=== PATIENT | female | born 1990 | race African-American/Black ===

== ENCOUNTER 2017-10-15 20:38 | Emergency (ER) | payer OTHER ==
--- NOTE | 2017-10-15 23:04 | ED Physician Documentation ---
PD HPI URI - Stated complaint Stated Complaint: COUGH/HEADACHE/FEVER/CHEST CONGESTION - Chief complaint Chief Complaint: Resp - History obtained from History obtained from: Patient - History of Present Illness Timing - onset: How many weeks ago (1-2) Timing duration: Weeks Timing details: Gradual onset, Still present (had URI symptoms initially and now with productive cough and wheezing despite OTC meds.) Associated symptoms: Fever, Chills, Productive cough, Dyspnea. No: Sore throat , Swollen nodes, Hemoptysis, Chest pain, NVD Contributing factors: No: Sick contact, Travel, Immunocompromised, COPD / asthma Similar symptoms before: Has not had sx before Recently seen: Not recently seen Review of Systems Constitutional: reports: Fever, Chills, Myalgias, Fatigue Nose: reports: Rhinorrhea / runny nose, Congestion Throat: reports: Sore throat Cardiac: denies: Chest pain / pressure Respiratory: reports: Dyspnea, Cough GI: denies: Vomiting, Diarrhea Skin: denies: Rash, Lesions PD PAST MEDICAL HISTORY - Past Medical History Past Medical History: Yes Respiratory: None Psych: Depression - Past Surgical History 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 - Present Medications Home Medications: Ambulatory Orders Medication Instructions Recorded Confirmed Citalopram Hydrobromide [Celexa] 1 tab PO DAILY 05/31/17 05/31/17 Azithromycin [Zithromax] 250 mg PO DAILY #5 tablet 10/16/17 Benzonatate [Tessalon] 100 mg PO TID PRN #25 capsule 10/16/17 Dexamethasone [Decadron] 4 mg PO DAILY #5 tablet 10/16/17 guaiFENesin/CODEINE [Robitussin AC] 10 ml PO Q6H PRN #240 ml 10/16/17 - Allergies Allergies/Adverse Reactions: Allergies Allergy/AdvReac Type Severity Reaction Status Date / Time Penicillins Allergy Respiratory Verified 10/15/17 21:07 - Social History Does the pt smoke?: No Smoking Status: Never smoker Does the pt drink ETOH?: No Does the pt have substance abuse?: No - Immunizations Immunizations are current?: Yes - POLST Patient has POLST: No PD ED PE NORMAL - Vitals Vital signs reviewed: Yes - General General: Alert and oriented X 3, No acute distress, Well developed/nourished - HEENT HEENT: Ears normal, Moist mucous membranes, Pharynx benign - Neck Neck: Supple, no meningeal sign, No adenopathy - Cardiac Cardiac: RRR, No murmur - Respiratory Respiratory: Clear bilaterally - Abdomen Abdomen: Soft, Non tender - Female Female : Beef Specialist 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 - Back Back: No CVA TTP - Derm Derm: Normal color, Warm and dry, No rash Results - Vitals Vitals: Oxygen O2 Source Room air PD MEDICAL DECISION MAKING - ED course Complexity details: considered differential (seems like URI symptoms with now additional symptoms of purulent cough ), d/w patient Departure - Departure Disposition: Home, Self Care Clinical Impression: Bronchitis Condition: Stable Record reviewed to determine appropriate education?: Yes Instructions: ED Upper Resp Infec Abx Tx Prescriptions: Azithromycin [Zithromax] 250 mg PO DAILY #5 tablet Benzonatate [Tessalon] 100 mg PO TID PRN #25 capsule PRN Reason: Cough Dexamethasone [Decadron] 4 mg PO DAILY #5 tablet guaiFENesin/CODEINE [Robitussin AC] 10 ml PO Q6H PRN #240 ml PRN Reason: Cough Comments: Use your albuterol inhaler 2 puffs 4 times a day for the next 5-7 days. Use Tessalon if needed for cough and add Robitussin with codeine if needed. Decadron daily for 5 more days to reduce bronchial inflammation and reduce the cough. This sounds like there may be some bacterial component so use Zithromax daily for 5 more days as well. Recheck if not improving over the next several days. Drink lots of fluids. Discharge Date/Time: 10/16/17 00:18
[2017-10-15] MEDS ORDERED: BENZONATATE 100 MG CAPSULE PO STA (23:22)
[2017-10-15] MEDS ORDERED: DEXAMETHASONE 10 MG/ML VIAL PO STA (23:22)
[2017-10-15] MEDS ORDERED: AZITHROMYCIN 250 MG TABLET PO STA (23:23)
[2017-10-16 00:18] VITALS: BP 121/62
== END 2017-10-16 00:18 | disposition home or self-care (01) ==
LOC: ED 20:38
DX: J40 Bronchitis, not specified as acute or chronic (principal)
CPT/HCPCS: 99283; A9270

== ENCOUNTER 2019-05-05 19:38 | Emergency (ER) | payer OTHER ==
[2019-05-05 20:43] LABS: BILIRUBIN,URINE NEGATIVE (NEGATIVE); GLUCOSE, URINE (UA) NEGATIVE (NEGATIVE); KETONES,URINE (UA) NEGATIVE (NEGATIVE); LEUKOCYTE ESTERASE, URINE NEGATIVE (NEGATIVE); NITRITE,URINE NEGATIVE (NEGATIVE); OCCULT BLOOD,URINE TRACE-LYSE (NEGATIVE); PROTEIN,URINE NEGATIVE (NEGATIVE); UROBILINOGEN,URINE 0.2 (NORMAL) E.U./dL (NORMAL)
[2019-05-05] MEDS ORDERED: ONDANSETRON ODT 4 MG TABLET TL STA (20:44)
[2019-05-05 20:45] LABS: CLARITY,URINE HAZY (CLEAR)
[2019-05-05 20:46] LABS: HCG UR QUAL NEGATIVE
--- NOTE | 2019-05-05 20:47 | ED Physician Documentation ---
PD HPI GI BLEED - Stated complaint Stated Complaint: FEMALE /BLOODY STOOL - Chief complaint Chief Complaint: Abd Pain - History obtained from History obtained from: Patient, Family - History of Present Illness Timing - onset: Today (a couple of horus ago) Timing - duration: Hours (2) Timing - details: Abrupt onset Severity Comments: moderate bleeding from her rectum, one time Associated symptoms: Abdominal pain. No: Vomiting, Coffee ground emesis, Hematemesis, Maroon stool, Black/tarry stool, Diarrhea, Constipation, Chest pain, Fever, Dizzy, Near syncope / syncope, Loss of appetite, Weight loss Contributing factors: No: Sick contact, Bad food, Travel, Recent antibiotics, NSAID use Improved by: Other (nothing) Worsened by: Palpation Similar symptoms before: Has not had sx before Recently seen: Not recently seen - Treatment prior to arrival Treatment prior to arrival: none - Additional information Additional information: 28 y/o F previously healthy not on blood thinners, felt she needed to have a BM today and when she went to the bathroom had a moderate amount of blood from her rectum in the toilet. No clots. She then had some mild nausea, no vomiting and lower abdominal discomfort afterwards. Denies prior hx. Review of Systems Ten Systems: 10 systems reviewed and negative Constitutional: denies: Fever Cardiac: reports: Reviewed and negative. denies: Chest pain / pressure Respiratory: reports: Reviewed and negative. denies: Dyspnea GI: reports: Abdominal Pain, Nausea, Bloody / black stool. denies: Vomiting, Constipation, Diarrhea, Hematemesis : reports: Reviewed and negative. denies: Hematuria Skin: reports: Reviewed and negative Neurologic: reports: Reviewed and negative. 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 - Present Medications Home Medications: Ambulatory Orders Medication Instructions Recorded Confirmed Citalopram Hydrobromide [Celexa] 1 tab PO DAILY 05/31/17 05/31/17 Azithromycin [Zithromax] 250 mg PO DAILY #5 tablet 10/16/17 Benzonatate [Tessalon] 100 mg PO TID PRN #25 capsule 10/16/17 dexAMETHasone [Decadron] 4 mg PO DAILY #5 tablet 10/16/17 guaiFENesin/CODEINE [Robitussin AC] 10 ml PO Q6H PRN #240 ml 10/16/17 - Allergies Allergies/Adverse Reactions: Allergies Allergy/AdvReac Type Severity Reaction Status Date / Time Penicillins Allergy Respiratory Verified 05/05/19 19:44 - Social History Does the pt smoke?: No Smoking Status: Never smoker Does the pt drink ETOH?: No Does the pt have substance abuse?: No - Immunizations Immunizations are current?: Yes - POLST Patient has POLST: No PD ED PE NORMAL - Vitals Vital signs reviewed: Yes - General General: Alert and oriented X 3, No acute distress, Well developed/nourished - HEENT HEENT: Atraumatic, Pharynx benign, Other (no pallor ) - Neck Neck: Supple, no meningeal sign, No JVD - Cardiac Cardiac: RRR, No murmur, No gallop, No rub - Respiratory Respiratory: No respiratory distress, Clear bilaterally - Abdomen Abdomen: Soft, Non distended, Other (mild lower abdominal tenderness bilaterally without guarding or rebound ) - Female Female : Deferred - Rectal Rectal: Other (no gross blood, no hemorroids or tenderness ) - Derm Derm: Normal color, Warm and dry, No rash - Extremities Extremities: No deformity, No tenderness to palpate, Normal ROM s pain, No edema - Neuro Neuro: Alert and oriented X 3 Eye Opening: Spontaneous Motor: Obeys Commands Verbal: Oriented GCS Score: 15 - Psych Psych: Normal mood, Normal affect Results - Vitals Vitals: Vital Signs - 24 hr 05/05/19 05/05/19 05/05/19 19:44 20:51 21:32 Temperature 36.5 C Heart Rate 81 78 82 Respiratory 16 18 16 Rate Blood Pressure 118/66 125/81 H 136/72 H O2 Saturation 98 98 98 Oxygen O2 Source Room air - Labs Labs: Laboratory Tests 05/05/19 05/05/19 05/05/19 20:36 20:50 20:50 WBC 7.8 RBC 3.75 L Hgb 11.2 L Hct 33.7 L MCV 89.9 MCH 29.9 MCHC 33.2 RDW 13.0 Plt Count 260 MPV 10.3 Neut # (Auto) 4.3 Lymph # (Auto) 2.6 [place] # (Auto) 0.4 Eos # (Auto) 0.5 Baso # (Auto) 0.0 Absolute Nucleated RBC 0.00 Nucleated RBC % 0.0 Sodium 137 Potassium 3.6 Chloride 104 Carbon Dioxide 23 Anion Gap 10.0 BUN 12 Creatinine 0.8 Estimated GFR (MDRD) 104 Glucose 97 Calcium 9.5 Total Bilirubin 0.6 AST 23 ALT 21 Alkaline Phosphatase 37 L Total Protein 7.4 Albumin 3.8 Globulin 3.6 Albumin/Globulin Ratio 1.1 Urine Color YELLOW Urine Clarity HAZY Urine pH 6.0 Ur Specific [place] 1.020 Urine Protein NEGATIVE Urine Glucose (UA) NEGATIVE Urine Ketones NEGATIVE Urine Occult Blood TRACE-LYSE Urine Nitrite NEGATIVE Urine Bilirubin NEGATIVE Urine Urobilinogen 0.2 (NORMAL) Ur Leukocyte Esterase NEGATIVE Urine RBC 0-5 Urine WBC 0-3 Ur Squamous Epith Cells MOD Squamous H Urine Bacteria Moderate H Urine Culture Comments NOT INDICATED Urine HCG, Qual NEGATIVE PD MEDICAL DECISION MAKING - ED course Complexity details: reviewed old records, reviewed results, re-evaluated patient, considered differential, d/w patient, d/w family ED course: ddx - upper gi bleed, lower gi bleed, diverticulitis, diverticulosis, hemorrhoids. 28 y/o F otherwise healthy with 1 episode of bright red blood per rectum. nausea since then today and lower abdominal discomfort. No urinary symptoms. No hx of gi bleeding or hemorroids, no vomiting or hematemesis. Not on blood thinners. Does not believe she is . Rectal here shows no blood. Labs pending Pt given antiemetics in the ED for mild nausea. Pt with only mild anemia, unknown baseline but likely stable. No further episodes of bleeding and no blood on rectal exam. I feel she is stable for discharge with outpt f/u to recheck symptoms. Discussed return precautions in case of worsening. Departure - Departure Disposition: 01 Home, Self Care Clinical Impression: Rectal bleeding Condition: Stable Record reviewed to determine appropriate education?: Yes Instructions: ED Hematochezia Stable Follow-Up: Ariella Dewitt MD [Primary Care Provider] - Within 3 Days (recheck your symptoms ) Comments: Your labs today were normal except for mild anemia, your Hemaglobin is 11.7. Given this was a single episode of rectal bleeding it is unlikely to cause significant blood loss or to be due to significant Gastrointestinal bleeding. You had no evidence of bleeding here on your rectal examination. You may note a small amount of blood on the toilet with bowel movements if this is due to a mild gastroenteritis or colitis. However if you go home and have multiple recurrent episodes of bleeding (blood in the toilet) or are vomiting blood you should return to the ED. Otherwise follow up with your regular doctor for repeat evaluation this week. Discharge Date/Time: 05/05/19 21:34
[2019-05-05 20:54] LABS: BASOPHILS % (AUTO) 0.4 %; EOSINOPHILS # (AUTO) 0.5 10^3/uL (0.0-0.7); EOSINOPHILS % (AUTO) 6.3 %; HGB - HEMOGLOBIN 11.2 g/dL (12.0-16.0); LYMPHOCYTES # (AUTO) 2.6 10^3/uL (1.5-3.5); LYMPHOCYTES % (AUTO) 32.9 %; MEAN CORPUSCULAR HEMOGLOBIN 29.9 pg (27.0-31.0); MEAN CORPUSCULAR HGB CONC 33.2 g/dL (32.0-36.0); MEAN CORPUSCULAR VOLUME 89.9 fL (81.0-99.0); MEAN PLATELET VOLUME 10.3 fL (7.9-10.8); MONOCYTES # (AUTO) 0.4 10^3/uL (0.0-1.0); NEUTROPHILS # (AUTO) 4.3 10^3/uL (1.5-6.6); NEUTROPHILS % (AUTO) 55.1 %; PLT - PLATELET COUNT 260 10^3/uL (130-450); RED BLOOD COUNT 3.75 10^6/uL (4.20-5.40); WHITE BLOOD COUNT 7.8 x10^3/uL (4.8-10.8)
[2019-05-05 21:00] LABS: RBC,URINE 0-5 /HPF (0-5)
[2019-05-05 21:01] LABS: BACTERIA,URINE Moderate /HPF (None Seen); SQUAMOUS EPITHELIAL CELL,UR MOD Squamous (<= Few)
[2019-05-05 21:09] LABS: ALBUMIN 3.8 g/dL (3.2-5.5); ALBUMIN/GLOBULIN RATIO 1.1 (1.0-2.2); BILIRUBIN,TOTAL 0.6 mg/dL (0.2-1.0); CALCIUM 9.5 mg/dL (8.5-10.3); CREATININE 0.8 mg/dL (0.4-1.0); TOTAL PROTEIN 7.4 g/dL (6.7-8.2)
[2019-05-05 21:32] VITALS: BP 136/72
== END 2019-05-05 21:34 | disposition home or self-care (01) ==
LOC: ED 19:38
DX: K62.5 Hemorrhage of anus and rectum (principal); R11.0 Nausea; R10.30 Lower abdominal pain, unspecified; D64.9 Anemia, unspecified
CPT/HCPCS: 36415; 80053; 81001; 81025; 85025; 99283; 99284; Q0162; 87086

== ENCOUNTER 2019-08-07 09:29 | Emergency (ER) | payer OTHER ==
[2019-08-07 10:05] LABS: BILIRUBIN,URINE NEGATIVE (NEGATIVE); GLUCOSE, URINE (UA) NEGATIVE (NEGATIVE); KETONES,URINE (UA) NEGATIVE (NEGATIVE); LEUKOCYTE ESTERASE, URINE NEGATIVE (NEGATIVE); NITRITE,URINE NEGATIVE (NEGATIVE); OCCULT BLOOD,URINE TRACE-LYSE (NEGATIVE); PROTEIN,URINE NEGATIVE (NEGATIVE); UROBILINOGEN,URINE 0.2 (NORMAL) E.U./dL (NORMAL)
[2019-08-07 10:06] LABS: CLARITY,URINE CLEAR (CLEAR)
[2019-08-07 10:07] LABS: HCG UR QUAL NEGATIVE
--- NOTE | 2019-08-07 10:28 | ED Physician Documentation ---
History of Present Illness - Stated complaint Stated Complaint: PELVIC/BACK PX - Chief complaint Chief Complaint: Abd Pain - Additonal information Additional information: Is a 28-year-old female who presents with 9 days of lower abdominal discomfort. Patient states that she is due to have her period around 9 days ago, which is not any, that she has had some lower abdominal cramping which is somewhat intermittent but has been progressively worsening over the last 9 days. She called in for an appointment today in her primary care stated they could not see her in the center to the emergency department to get checked out. She denies a ny dysuria, abnormal vaginal discharge, no concern for sexual transmitted infection. She does use the NuvaRing for control. She does feel slightly nauseated at this time. She has not taken thing for pain. She has had C- sections, no other abdominal surgeries. 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 - Present Medications Home Medications: Ambulatory Orders Medication Instructions Recorded Confirmed Citalopram Hydrobromide [Celexa] 1 tab PO DAILY 05/31/17 05/31/17 Azithromycin [Zithromax] 250 mg PO DAILY #5 tablet 10/16/17 Benzonatate [Tessalon] 100 mg PO TID PRN #25 capsule 10/16/17 dexAMETHasone [Decadron] 4 mg PO DAILY #5 tablet 10/16/17 guaiFENesin/CODEINE [Robitussin AC] 10 ml PO Q6H PRN #240 ml 10/16/17 Acetaminophen 650 mg PO Q6HR #30 tablet 08/07/19 Ibuprofen [Ibu] 600 mg PO Q6H PRN #30 tablet 08/07/19 - Allergies Allergies/Adverse Reactions: Allergies Allergy/AdvReac Type Severity Reaction Status Date / Time Penicillins Allergy Respiratory Verified 08/07/19 09:32 - Social History Does the pt smoke?: No Smoking Status: Never smoker Does the pt drink ETOH?: No Does the pt have substance abuse?: No - Immunizations Immunizations are current?: Yes - POLST Patient has POLST: No PD ED PE NORMAL - Vitals Vital signs reviewed: Yes - General General: Alert and oriented X 3, No acute distress - HEENT HEENT: PERRL - Neck Neck: Supple, no meningeal sign - Cardiac Cardiac: RRR, No murmur - Respiratory Respiratory: Clear bilaterally - Abdomen Abdomen: Normal bowel sounds, Soft, Other (Mild suprapubic tenderness palpation, no guarding. No right lower quadrant tenderness, no upper abdominal tenderness.) - Derm Derm: Warm and dry - Extremities Extremities: No deformity - Neuro Neuro: Alert and oriented X 3 - Psych Psych: Normal mood, Normal affect Results - Vitals Vitals: Vital Signs - 24 hr 08/07/19 08/07/19 08/07/19 09:32 09:44 11:35 Temperature 36.5 C Heart Rate 100 100 90 Respiratory 14 14 14 Rate Blood Pressure 107/59 L 107/59 L 108/60 O2 Saturation 97 97 98 Oxygen O2 Source Room air - Labs Labs: Microbiology 08/07/19 12:12 Wet Prep - Final Vaginal Laboratory Tests 08/07/19 08/07/19 08/07/19 09:50 10:52 10:52 WBC 8.6 RBC 3.91 L Hgb 11.5 L Hct 35.5 L MCV 90.8 MCH 29.4 MCHC 32.4 RDW 12.6 Plt Count 239 MPV 10.4 Neut # (Auto) 4.8 Lymph # (Auto) 2.9 [place] # (Auto) 0.5 Eos # (Auto) 0.5 Baso # (Auto) 0.0 Absolute Nucleated RBC 0.00 Nucleated RBC % 0.0 Sodium 135 Potassium 3.5 Chloride 103 Carbon Dioxide 24 Anion Gap 8.0 BUN 12 Creatinine 0.8 Estimated GFR (MDRD) 104 Glucose 100 Calcium 9.6 Total Bilirubin 0.5 AST 27 ALT 33 Alkaline Phosphatase 45 Total Protein 7.8 Albumin 3.9 Globulin 3.9 Albumin/Globulin Ratio 1.0 Lipase 39 Urine Color YELLOW Urine Clarity CLEAR Urine pH 6.0 Ur Specific [place] 1.025 Urine Protein NEGATIVE Urine Glucose (UA) NEGATIVE Urine Ketones NEGATIVE Urine Occult Blood TRACE-LYSE Urine Nitrite NEGATIVE Urine Bilirubin NEGATIVE Urine Urobilinogen 0.2 (NORMAL) Ur Leukocyte Esterase NEGATIVE Ur Microscopic Review NOT INDICATED Urine Culture Comments NOT INDICATED Urine HCG, Qual NEGATIVE PD MEDICAL DECISION MAKING - ED course Complexity details: considered differential (UTI, endometriosis, uterine cramping, enteritis,, torsion, ovarian cyst, bacterial vaginosis, sexually transmitted infection) ED course: Patient is well-appearing on exam, her vital signs are notable for borderline tachycardia in triage which resolved spontaneously. Her abdomen is very benign, she has very mild suprapubic tenderness, but no guarding, no focal tenderness on the right or left. The nature of her pain's duration for 9 days, and her benign examination make appendicitis or acute abdominal pathology unlikely. Uterine or ovarian pathology is possible so ultrasound is performed which is unremarkable without signs of torsion or uterine abnormalities that are likely explanation for her pain. It did show some mildly heterogeneous texture of the uterus which is likely secondary to fat infiltration. This was discussed with her. On pelvic exam the cervix is normal in appearance, no signs of PID. There is a moderate amount of thick discharge in the vaginal vault, so wet mount was performed. Patient has no concern for sexual transmitted infection, she has no vaginal itching or burning, and STI seems very unlikely today. Patient needed to go home, so she was discharged in accordance with her wishes with the results of the wet prep pending. Her abdomen is benign, she is feeling much better after just Tylenol and ibuprofen. I reviewed with her primary care or OB follow-up, return to the emergency department with any new or worsening symptoms particularly pain that settles in the right lower quadrant, increasing pain, persistent vomiting, or other concerning symptoms. Patient agreed. Wet prep resulted positive for bacterial vaginosis, she was called and alerted of this and she agrees with the plan to start a week of Flagyl. I discussed that this may or may not be the cause of her symptoms, and that the return precautions we discussed still apply. Patient agreed and was feeling well at the time of the call. Departure - Departure Disposition: 01 Home, Self Care Clinical Impression: Lower abdominal pain Condition: Good Instructions: ED Abdominal Pain Unkn Cause Follow-Up: Ariella Dewitt MD [Primary Care Provider] - Within 1 week Prescriptions: Acetaminophen 650 mg PO Q6HR #30 tablet Ibuprofen [Ibu] 600 mg PO Q6H PRN #30 tablet PRN Reason: Pain Comments: You were seen today for lower abdominal discomfort. Your ultrasound and labs did not show an obvious cause of your pain. You may take the Tylenol and ibuprofen as prescribed. Please follow-up with your primary care provider and/or your OB/sign language instructor on your discomfort. If you are having worsening pain, vomiting, fever, or any other new concerning symptoms please return to the emergency department. Discharge Date/Time: 08/07/19 12:55
[2019-08-07] MEDS ORDERED: ACETAMINOPHEN 325 MG TABLET PO STA (10:38)
[2019-08-07] MEDS ORDERED: IBUPROFEN 600 MG TABLET PO STA (10:38)
[2019-08-07] MEDS ORDERED: ONDANSETRON ODT 4 MG TABLET TL STA (10:38)
[2019-08-07 10:56] LABS: BASOPHILS % (AUTO) 0.3 %; EOSINOPHILS # (AUTO) 0.5 10^3/uL (0.0-0.7); EOSINOPHILS % (AUTO) 5.2 %; HGB - HEMOGLOBIN 11.5 g/dL (12.0-16.0); LYMPHOCYTES # (AUTO) 2.9 10^3/uL (1.5-3.5); MEAN CORPUSCULAR HEMOGLOBIN 29.4 pg (27.0-31.0); MEAN CORPUSCULAR HGB CONC 32.4 g/dL (32.0-36.0); MEAN CORPUSCULAR VOLUME 90.8 fL (81.0-99.0); MEAN PLATELET VOLUME 10.4 fL (7.9-10.8); MONOCYTES # (AUTO) 0.5 10^3/uL (0.0-1.0); MONOCYTES % (AUTO) 5.4 %; NEUTROPHILS # (AUTO) 4.8 10^3/uL (1.5-6.6); NEUTROPHILS % (AUTO) 55.8 %; PLT - PLATELET COUNT 239 10^3/uL (130-450); RED BLOOD COUNT 3.91 10^6/uL (4.20-5.40); RED CELL DISTRIBUTION WIDTH 12.6 % (12.0-15.0); WHITE BLOOD COUNT 8.6 x10^3/uL (4.8-10.8)
[2019-08-07 11:07] LABS: ALBUMIN 3.9 g/dL (3.2-5.5); BILIRUBIN,TOTAL 0.5 mg/dL (0.2-1.0); CALCIUM 9.6 mg/dL (8.5-10.3); CREATININE 0.8 mg/dL (0.4-1.0); TOTAL PROTEIN 7.8 g/dL (6.7-8.2)
--- NOTE | 2019-08-07 12:13 | Ultrasound Report ---
Reason: pelvic pain, R Procedure Date: 08/07/2019 Accession Number: [id number] / [id number] Procedure: US - Pelvic w/Transvag+Doppler Comp CPT Code: Final Report FULL RESULT: EXAM: PELVIC ULTRASOUND WITH DOPPLERS, WITH TRANSVAGINAL SCANNING CLINICAL HISTORY: Right-sided pelvic pain in a 28-year-old female. COMPARISON: None. TECHNIQUE: Realtime transabdominal imaging performed on an emergent basis, to identify the uterus and adnexa and as an overview of other pelvic structures, followed by transvaginal imaging for better assessment of the endometrium and adnexa, with static image documentation. Color flow imaging and Doppler spectral analysis was performed to evaluate blood flow to the ovaries given pelvic pain and clinical concern for ovarian torsion. FINDINGS: Uterus: 9.6 x 4.5 x 5.4 cm, volume 121 cc. Anteverted position. Normal overall size, with mildly heterogeneous echotexture. Masses: None. Endometrium: 8 mm. Normal. No mass, cyst, polyp or abnormal vascularity. Cervix: Small benign-appearing nabothian cysts. Otherwise unremarkable. Right Ovary: 3.9 x 3.2 x 3.4 cm, volume 22.5 cc. Normal echotexture. Benign-appearing follicle cysts with a mildly dominant cyst 1.8 cm in diameter. No solid mass or pathologic cyst. Arterial and venous blood flow are present. PSV 10.1 cm/sec. RI 0.7. Adnexa are unremarkable. Left Ovary: 3.5 x 2.9 x 3 cm, volume 15.9 cc. Normal echotexture. Benign-appearing age-appropriate follicle cysts, largest 2.8 cm in diameter. No solid mass or pathologic cyst. Arterial and venous blood flow are present. PSV 5.1 cm/sec. RI 0.7. Adnexa are unremarkable. Free Fluid: No free fluid or adenopathy in the visualized pelvis. Other: None. IMPRESSION: Mildly heterogeneous echotexture in the uterus, likely secondary to mild fat infiltration. Uterus otherwise normal. Endometrium unremarkable. Unremarkable ovaries and adnexa for age and menstrual status. No demonstrated cause for the patient's symptoms. RADIA
[2019-08-07 12:49] VITALS: BP 108/60
== END 2019-08-07 12:55 | disposition home or self-care (01) ==
LOC: ED 09:29
DX: N76.0 Acute vaginitis (principal); B96.89 Other specified bacterial agents as the cause of diseases classified elsewhere; R10.30 Lower abdominal pain, unspecified; R11.0 Nausea; R00.0 Tachycardia, unspecified
CPT/HCPCS: 36415; 76830; 76856; 80053; 81003; 81025; 83690; 85025; 87210; 93975; 99284; A9270; Q0162; 81001; 87086

== ENCOUNTER 2022-07-23 14:24 | Emergency (ER) | payer OTHER ==
[2022-07-23] MEDS: ACETAMINOPHEN 325 MG TABLET PO STA (16:35)
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
[2022-07-23 17:56] VITALS: BP 104/64
== END 2022-07-23 17:55 | disposition home or self-care (01) ==
LOC: ED 14:24
DX: S16.1XXA Strain of muscle, fascia and tendon at neck level, initial encounter (principal); S39.012A Strain of muscle, fascia and tendon of lower back, initial encounter; V89.2XXA Person injured in unspecified motor-vehicle accident, traffic, initial encounter; Y93.89 Activity, other specified; Y92.410 Unspecified street and highway as the place of occurrence of the external cause
CPT/HCPCS: 72040; 72100; 99282; 99283; A9270

== ENCOUNTER 2022-10-21 11:42 | Emergency (ER) | payer OTHER ==
[2022-10-21] MEDS ORDERED: HYDROmorphone 1 MG/ML CARPUJECT IM STA ×2 (15:39→17:51)
[2022-10-21] MEDS ORDERED: DEXAMETHASONE 10 MG/ML VIAL IM STA (15:39)
--- NOTE | 2022-10-21 15:42 | ED Physician Documentation ---
History of Present Illness - Stated complaint Stated Complaint: BACK PX - Chief complaint Chief Complaint: Back Pain - History obtained from History obtained from: Patient - Additonal information Additional information: The patient comes to the emergency department with chief complaint of back pain for the last 2 days. She states that she works out 6 days a week and has a very physical job, and had bent over without holding anything or pulling anything and suddenly felt a twinge in her mid back on the right side. Patient states for the past couple days it seems like the pain has gotten worse and worse and not just sends a sharp shooting pain all the way up to her neck. She states it does not really feel like the spine that hurts but right next to it. She denies any numbness or tingling. No motor deficits. The patient has a history of some back issues because she has scoliosis, but states that she has never had any major problems. She is concerned because she her is in the and they are moving to [facility] in 2 months and she wants to make sure she does not have any issues. 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 No other complaints at this time. No loss of bowel or bladder function. 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 - Present Medications Home Medications: Ambulatory Orders Medication Instructions Recorded Confirmed Citalopram Hydrobromide [Celexa] 1 tab PO DAILY 05/31/17 05/31/17 Azithromycin [Zithromax] 250 mg PO DAILY #5 tablet 10/16/17 Benzonatate [Tessalon] 100 mg PO TID PRN #25 capsule 10/16/17 dexAMETHasone [Decadron] 4 mg PO DAILY #5 tablet 10/16/17 guaiFENesin/CODEINE [Robitussin AC] 10 ml PO Q6H PRN #240 ml 10/16/17 Acetaminophen 650 mg PO Q6HR #30 tablet 08/07/19 Ibuprofen [Ibu] 600 mg PO Q6H PRN #30 tablet 08/07/19 Cyclobenzaprine [Flexeril] 10 mg PO TID PRN #20 tablet 07/23/22 HYDROcod/ACETAM 5/325 [[place]wood 5/325] 1 - 2 tablet PO Q6H PRN #7 tablet 07/23/22 HYDROcod/ACETAM 5/325 [[place]wood 5/325] 2 tablet PO Q4H PRN #14 tablet 10/21/22 methocarbamoL [Robaxin] 500 mg PO Q6H #20 tablet 10/21/22 - Allergies Allergies/Adverse Reactions: Allergies Allergy/AdvReac Type Severity Reaction Status Date / Time Penicillins Allergy Respiratory Verified 10/21/22 11:52 - Social History Does the pt smoke?: No Smoking Status: Never smoker Does the pt drink ETOH?: No Does the pt have substance abuse?: No - Immunizations Immunizations are current?: Yes - POLST Patient has POLST: No PD ED PE NORMAL - Vitals Vital signs reviewed: Yes - General General: Alert and oriented X 3, No acute distress, Well developed/nourished - HEENT HEENT: Atraumatic, PERRL, EOMI, Moist mucous membranes - Neck Neck: Supple, no meningeal sign, No bony TTP - Cardiac Cardiac: RRR, No murmur - Respiratory Respiratory: No respiratory distress, Clear bilaterally - Back Back: Other (mild TTP T8 level, no step-off. TTP R paraspinal musculature, Around the T8 level and also, throughout the right trapezius distribution, especially paraspinally.) - Derm Derm: Normal color, Warm and dry, No rash - Extremities Extremities: No deformity, No edema - Neuro Neuro: Alert and oriented X 3, angle bender 2-12 intact, No motor deficit, No sensory deficit, Normal speech - Psych Psych: Normal mood, Normal affect Results - Vitals Vitals: Vital Signs - 24 hr 10/21/22 10/21/22 11:49 19:01 Temperature 36.8 C Heart Rate 90 72 Respiratory 16 18 Rate Blood Pressure 122/75 120/73 O2 Saturation 97 98 Oxygen O2 Source Room air - Rads (name of study) thoracic spine XR series Relevant Findings:: Final report received, See rad report (neg) PD Medical Decision Making - ED course Complexity details: reviewed results, re-evaluated patient, considered differential, d/w patient ED course: The patient was worked up with x-ray series of the thoracic spine and treated symptomatically with Decadron and Dilaudid in the emergency department. She stated she cannot take NSAIDs because of her gastric sleeve surgery. She stated the initial round of meds did nothing, but reported feeling better after a second dose of Dilaudid. Her x-ray series was negative. We have discussed the need for follow-up and the usual indications for return. Departure - Departure Disposition: 01 Home, Self Care Clinical Impression: Strain of thoracic back region Condition: Stable Instructions: ED Spasm Back No Trauma Prescriptions: HYDROcod/ACETAM 5/325 [[place]wood 5/325] 2 tablet PO Q4H PRN #14 tablet PRN Reason: Pain methocarbamoL [Robaxin] 500 mg PO Q6H #20 tablet Comments: Your x-rays look good. Your tenderness is over the musculature of your mid back on the right and over your trapezius muscle. In general, this should be expected to resolve on its own and most likely represents a strain. If you wish, you may follow-up with your primary doctor to discuss potentially having an MRI done. Prescriptions for pain medication and muscle relaxer been electronically transmitted to the [facility] pharmacy in [place]. If you have further concerns about pain management at home, please follow-up with your primary doctor. Forms: Activity restrictions Discharge Date/Time: 10/21/22 19:10
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
[2022-10-21 19:02] VITALS: BP 120/73
== END 2022-10-21 19:10 | disposition home or self-care (01) ==
LOC: ED 11:42
DX: S29.012A Strain of muscle and tendon of back wall of thorax, initial encounter (principal); X58.XXXA Exposure to other specified factors, initial encounter
CPT/HCPCS: 72070; 96372; 99283; J1170